=== PATIENT | female | born 1985 | race Caucasian/White ===

== ENCOUNTER 2017-10-01 02:42 | Emergency (ER) | payer SELFPAY ==
--- NOTE | 2017-10-01 03:28 | PD ---
HPI Chief Complaint ctx Date Seen: Oct 01, 2017 Time Seen: 03:22 Travel History International Travel<30 Days: No Contact w/Intl Traveler<30Days: No Known Affected Area: No History of Present Illness HPI Pt is a 32y/o G1 @ 40.0wks. She has PNC with Dr. Jerome. She was seen in the office today and was 1cm dilated. She presents with c/o ctx which started at 4pm and became intense over the past 3 hrs. She denies LOF or VB. +FM. is c/b Rh neg (known Rh pos partner). Weeks Gestation: 40 Para: 0 : 1 History Past Medical History Medical History: Denies Significant Hx Obstetric History Obstetric History 1. current Past Surgical History Narrative Surgical T&A lasix Family History Family History: Negative Social History Alcohol Use: No Tobacco Use: No Substance Abuse: No Review of Systems Except as stated in HPI: all other systems reviewed are Neg Physical Exam Narrative General: well developed, well nourished, no acute distress HEENT: normocephalic atraumatic, extraocular movements intact, neck supple Abdomen: soft, gravid, nontender, nondistended Extremities: full range of motion Skin: normal coloration, no rashes, no suspicious skin lesions noted Neurologic: cranial nerves 2-12 grossly intact, normal muscle tone, normal gait Psychiatric: normal mood and affect, appropriate FHTs: 130, +accels, no decels, moderate variability, reactive Coronita: irregular ctx Cvx: /-2 Data Data Vital Signs Reviewed: Yes Orders Orders Vital Signs (Adult) .ON ADMISSION (10/01/17 03:22) ^ Labor Status (10/01/17 03:22) Urinalysis - C+S If Indicated (10/01/17 03:22) ^ Non Stress Test (10/01/17 03:22) Group B Strep: Negative MDM Plan 32y/o G1 @ 40.0wks with ctx, Rh neg. -- cvx 1cm (unchanged from clinic) -- FHTs cat 1 -- recheck in 1hr -- GBS neg Dispo: cvx unchanged after 1hr; d/c home with precautions Diagnosis Diagnosis: Primary Impression: 40 weeks gestation of Additional Impressions: Uterine contractions during Rh negative status during in third trimester Rupinder Solo MD Oct 01, 2017 03:28
[2017-10-01 04:16] LABS: BILIRUBIN, URINE NEG (NEG); BLOOD, URINE NEG (NEG); GLUCOSE,URINE NEG (NEG); KETONE, URINE TRACE mg/dL (NEG); MUCUS URINE FEW /lpf (OCC); NITRITE,URINE NEG (NEG); SQUAMOUS EPITHELIAL CELL URINE 5 /hpf (0-5); URINE COLOR YELLOW (YELLW/STRAW); URINE LEUKOCYTE ESTERASE NEG (NEG)
[2017-10-01] MEDS ORDERED: PRENTAB7 (15:17)
== END 2017-10-01 05:04 | disposition home or self-care (01) ==
LOC: HOBED 02:56
DX: O47.1 False labor at or after 37 completed weeks of gestation (principal); Z3A.40 40 weeks gestation of pregnancy
CPT/HCPCS: 81001; 99284

== ENCOUNTER 2017-10-01 14:49 | Inpatient (IN) | payer OTHER ==
[~2017-10-01] VITALS: Ht 167.6 cm; Wt 67.0 kg
[2017-10-01] VITALS (39 sets, daily range): BP systolic 96–133; BP diastolic 47–94; PULSE 75–128; RESP 18–20; TEMP 98.2–98.8
--- NOTE | 2017-10-01 15:11 | PD ---
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 They increased in intensity and frequency and she was seen in the OB ED at approximately 3 AM and had an unchanged vaginal exam since seen in the office on the same day of 1 cm dilated. She reports that her contractions continued to increase in intensity and frequency since that time. She was seen in the office today with a vaginal exam of 5/complete. She denies any leaking of fluid or vaginal bleeding. She reports good movement. Weeks Gestation: 40 Para: 0 : 1 History Past Medical History Narrative Medical Reflux, remote history of asthma Obstetric History Obstetric History History of HPV Past Surgical History Narrative Surgical Tonsillectomy, wisdom teeth, Family History Narrative Family History Thrombocytopenia Social History Alcohol Use: No Tobacco Use: No Substance Abuse: No Allergies-Medications (Allergen,Severity, Reaction): Coded Allergies: No Known Allergies (Unverified , 10/01/17) Home Meds Reported Medications Pnv No.95/Ferrous Fum/Folic AC ( Vitamins Tablet) 28 Mg Iron-800 Mcg Tablet 10/01/17 Review of Systems Except as stated in HPI: all other systems reviewed are Neg Physical Exam Narrative GENERAL: Well-nourished, well-developed patient. SKIN: Warm and dry. HEAD: Normocephalic and atraumatic. EYES: No scleral icterus. No injection or drainage. ENT: No nasal drainage noted. Mucous membranes pink. Airway patent. NECK: Supple, trachea midline. No JVD. CARDIOVASCULAR: Regular rate and rhythm without murmurs, gallops, or rubs. RESPIRATORY: Breath sounds equal bilaterally. No accessory muscle use. BREASTS: Deferred ABDOMEN/GI: Abdomen soft, non-tender, bowel sounds present, no rebound, no guarding Gravid GENITOURINARY: External Genitalia: intact and normal in appearance. Normal BUS glands. Grossly normal rugae and no cervical or vaginal masses were appreciated. Physiologic discharge is noted. SVE 5/complete/-1 with BBOW FHT's: heart tones are in the 130s with moderate long-term variability, good accelerations, no decelerations are noted. The category 1 heart rate tracing EXTREMITIES: No cyanosis or edema. BACK: Nontender without obvious deformity. No CVA tenderness. NEUROLOGICAL: Awake and alert. Motor and sensory grossly within normal limits. Five out of 5 muscle strength in all muscle groups. Normal speech. Psychiatric: Grossly normal memory and affect Musculoskeletal: Grossly normal range of motion, gait, muscle strength MDM Plan Assessment/plan: 1. IUP at 40.0 2. Labor: The patient was 1 cm dilated at 4 AM and has progressed to 5/complete /-1 with a bulging bag of water. She was examined in the office with the same exam and was sent over for further evaluation. She will be admitted to Dr. Manning for labor who was in agreement with the plan. 3. GBS negative 4. History of HPV 5. Remote history of asthma: No issues 6. Rh- status post RhoGAM 7. History of reflux 8. well-being: The patient has reassuring testing with a reactive NST and category 1 heart rate tracing, we will continue monitoring. Claudia Blair MD Oct 01, 2017 15:11
[2017-10-01] MEDS ORDERED: PRENTAB7 (15:17)
[2017-10-01] MEDS ORDERED: LACTATED RINGER'S 1000 ML INJ 1,000 ML IV SCH (15:18)
[2017-10-01] MEDS ORDERED: LACTATED RINGER'S 1000 ML INJ 1,000 ML IV PRN (15:18)
[2017-10-01] MEDS ORDERED: LIDOCAINE HCL 1% 50 ML VIAL I-DERMAL PRN (15:30)
[2017-10-01] MEDS ORDERED: OXYTOCIN 30 UNITS-500ML PREMIX 500 ML IV ONE (15:30)
[2017-10-01] MEDS ORDERED: MINERAL OIL 10 ML VIAL TOPICAL PRN (15:30)
[2017-10-01] MEDS ORDERED: CITRIC ACID-SODIUM CITRATE LIQ 30 ML UDC PO SCH (15:30)
[2017-10-01] MEDS ORDERED: LIDOCAINE HCL 1% 50 ML VIAL INFIL PRN (15:30)
[2017-10-01] MEDS ORDERED: SODIUM CHLORID 0.9% 500 ML INJ 500 ML IV PRN (15:30)
[2017-10-01] MEDS ORDERED: SODIUM CHLOR 0.9% 1000 ML INJ 1,000 ML IV PRN (15:38)
[2017-10-01] MEDS ORDERED: DIPHTH/TETANUS/ACEL PERTUSSIS (BOOSTER) 0.5 ML VIAL/PFS IM ONE (16:00)
[2017-10-01] MEDS ORDERED: MEASLES, MUMPS, RUBELLA VACCINE 0.5 ML VIAL SQ ONE (16:00)
[2017-10-01] MEDS ORDERED: fentaNYL 2MCG-BUPIV 0.125% INJ 100 ML ONE (16:40)
[2017-10-01] MEDS ORDERED: ePHEDrine/NS 25 MG/5 ML SYRINGE ONE (16:40)
[2017-10-01 16:49] LABS: AUTOMATED NEUTROPHIL # 10.3 TH/MM3 (1.8-7.7); BASOPHIL % 0.4 % (0.0-2.0); EOSINOPHIL % 0.1 % (0.0-4.0); HEMATOCRIT 35.2 % (35.0-46.0); LYMPH % 11.7 % (9.0-44.0); LYMPHOCYTE # 1.5 TH/MM3 (1.0-4.8); MEAN CELL VOLUME 89.6 FL (80.0-100.0); MEAN CORPUSCULAR HEMOGLOBIN 30.6 PG (27.0-34.0); MEAN CORPUSCULAR HGB CONC 34.2 % (32.0-36.0); MONO % 6.1 % (0.0-8.0); NEUT % 81.7 % (16.0-70.0); PLATELET COUNT 275 TH/MM3 (150-450); RED BLOOD COUNT 3.93 MIL/MM3 (4.00-5.30); RED CELL DISTRIBUTION WIDTH 13.7 % (11.6-17.2); WHITE BLOOD COUNT 12.6 TH/MM3 (4.0-11.0)
[2017-10-01 16:52] LABS: HEMO FLAGS AUTO DIFF
[2017-10-01 17:05] LABS: BACTERIA, URINE OCC /hpf; BLOOD, URINE LARGE (NEG); COMMENT (UR) CULTURE INDICATED; CULTURE IF INDICATED CULTURE INDICATED; GLUCOSE,URINE NEG (NEG); KETONE, URINE 40 mg/dL (NEG); MUCUS URINE FEW /lpf (OCC); NITRITE,URINE NEG (NEG); SQUAMOUS EPITHELIAL CELL URINE 19 /hpf (0-5); URINE COLOR YELLOW (YELLW/STRAW)
[2017-10-01 17:39] LABS: PLATELET ESTIMATE SMEAR NORMAL (NORMAL); PLATELET MORPHOLOGY NORMAL (NORMAL); SCAN/DIFF AUTO DIFF CONFIRMED
[2017-10-01] MEDS ORDERED: OXYTOCIN 30 UNITS-500ML PREMIX 500 ML IV SCH ×2 (18:15→22:15)
[2017-10-01] MEDS ORDERED: NO SYSTEM NARCOTICS PRN (19:15)
[2017-10-01] MEDS ORDERED: ePHEDrine/NS 25 MG/5 ML SYRINGE IV PUSH PRN (19:15)
[2017-10-01] MEDS ORDERED: fentaNYL 2MCG-BUPIV 0.125% 100 ML EPIDURAL SCH (19:15)
[2017-10-01] MEDS ORDERED: DO NOT ADMINISTER ANTICOAGULANTS PRN (19:15)
--- NOTE | 2017-10-01 22:14 | PD.OB.DELI ---
Weeks gestation: 40 Pt started active labor?: Yes Medical induction of labor?: No Artificial rupture of membrane: Yes Anesthesia: Epidural Episiotomy: None Vaginal Delivery: Normal Presentation: Occiput anterior, Compound (right hand) Nuchal Cord: Other (wrapped around body, arm, leg, and neck x 1; delivered through then reduced ) Delayed cord clamping (45 sec): Yes Infant: Female Delivery date: Oct 01, 2017 Delivery time: 21:46 One Minute : 8 Five Minute : 9 Placenta: Spontaneous delivery, Intact, 3 vessel cord Laceration: 1 deg (perineal and right labial) Repair: Chromic running (3-0 running on both superficial lacerations with excellent result) Estimated blood loss: 100 mL Additional Information healthy female infant Kaylen Manning MD Oct 01, 2017 22:14
[2017-10-01] MEDS ORDERED: WITCH HAZEL 50%/GLYCERIN 12.5% 40 PAD JAR TOPICAL PRN (22:15)
[2017-10-01] MEDS ORDERED: oxyCODONE/ACETAMINOPHEN 5 MG/325 MG TAB PO PRN ×2 (22:15)
[2017-10-01] MEDS ORDERED: BENZOCAINE 20% TOPICAL SPRAY 60 ML CAN TOPICAL PRN (22:15)
[2017-10-01] MEDS ORDERED: ACETAMINOPHEN 325 MG TAB PO PRN (22:15)
[2017-10-01] MEDS ORDERED: DOCUSATE SODIUM 50 MG/SENNA 8.6 MG TAB PO PRN (22:15)
[2017-10-01] MEDS ORDERED: ALUMINUM/MAGNESIUM/SIMETH 30 ML CUP PO PRN (22:15)
[2017-10-01] MEDS ORDERED: ZOLPIDEM TARTRATE 5 MG TAB PO PRN (22:15)
[2017-10-01] MEDS ORDERED: SODIUM CHLORIDE 0.9% FLUSH 10 ML FLUSH IV FLUSH PRN (22:15)
[2017-10-01] MEDS ORDERED: ONDANSETRON ODT 4 MG TAB PO PRN (22:15)
--- NOTE | 2017-10-01 22:15 | HHI.DCPOC ---
Discharge Care Plan Diagnosis: (1) (spontaneous vaginal delivery) Your Health Problems Are: Vaginal delivery Report Symptoms to Your Doctor -Temperature above 100.5 degrees -Redness, of incision or excessive or foul smelling drainage -Unusual pain or calf pain -Increased vaginal bleeding -Painful or difficulty urinating -Feelings of extreme sadness or anxiety after 2 weeks Goals to Promote Your Health * To prevent worsening of your condition and complications * To maintain your health at the optimal level Directions to Meet Your Goals Take your medications as prescribed Follow your dietary instruction Follow activity as directed Ensure plenty of rest for recovery Drink fluids for hydration Keep your appointments as scheduled Take your immunizations and boosters as scheduled If your symptoms worsen call your PCP, if no PCP go to Urgent Care Center or Emergency Room Smoking is Dangerous to Your Health. Avoid second hand smoke Call the 24-hour crisis hotline for domestic abuse at Kaylen Manning MD Oct 01, 2017 22:15
[2017-10-02] VITALS (7 sets, daily range): BP systolic 103–111; BP diastolic 63–71; PULSE 67–114; RESP 12–18; TEMP 97.9–98.2; O2SAT 96–98
[2017-10-02] MEDS: IBUPROFEN 800 MG TAB PO PRN ×3 (00:12→17:46)
--- NOTE | 2017-10-02 13:54 | HHI.OB ---
Subjective Post Day: 1 Remarks PPD#1; Stable, doing well Objective Vitals/I&O Vital Signs Date Time Temp Pulse Resp B/P (MAP) Pulse Ox O2 Delivery O2 Flow Rate FiO2 10/02/17 08:00 97.9 82 12 107/65 (79) 10/02/17 02:06 98.1 110 18 111/63 (79) 96 10/02/17 01:42 67 18 103/67 (79) 98 10/02/17 01:42 98.2 10/02/17 01:17 18 10/02/17 01:15 90 108/71 (83) 10/02/17 00:15 114 108/70 (83) 10/02/17 00:00 101 108/64 (79) 10/01/17 23:55 98.3 18 10/01/17 23:45 100 96/71 (79) 10/01/17 23:31 75 113/84 (94) 10/01/17 23:15 97 119/65 (83) 10/01/17 23:10 18 10/01/17 23:00 98 10/01/17 23:00 119/71 (87) 10/01/17 22:46 100 102/47 (65) 10/01/17 22:30 103 126/82 (97) 10/01/17 22:15 109 18 10/01/17 22:15 125/82 (96) 10/01/17 22:00 129/79 (96) 10/01/17 22:00 110 10/01/17 21:52 119 133/79 (97) 10/01/17 21:31 110/94 (99) 10/01/17 21:31 128 10/01/17 21:15 98.2 10/01/17 21:15 84 107/62 (77) 10/01/17 21:00 95 101/56 (71) 10/01/17 21:00 18 10/01/17 20:45 95 10/01/17 20:45 108/62 (77) 10/01/17 20:30 90 107/66 (80) 10/01/17 20:15 96 18 99/56 (70) 10/01/17 20:00 89 10/01/17 20:00 106/61 (76) 10/01/17 19:59 18 10/01/17 19:45 90 107/63 (78) 10/01/17 19:30 101 100/58 (72) 10/01/17 19:15 100 105/63 (77) 10/01/17 19:13 98.8 18 10/01/17 19:00 99 104/66 (79) 10/01/17 18:40 20 10/01/17 18:40 94 112/67 (82) 10/01/17 18:35 97 10/01/17 18:35 111/64 (80) 10/01/17 18:30 99 10/01/17 18:30 112/61 (78) 10/01/17 18:25 100 112/67 (82) 10/01/17 18:20 103 105/61 (76) 10/01/17 18:15 103 119/63 (81) 10/01/17 18:10 91 115/70 (85) 10/01/17 18:05 103 100/48 (65) 10/01/17 18:00 101 115/90 (98) 10/01/17 17:55 103 127/75 (92) 10/01/17 17:51 107 121/81 (94) 10/01/17 17:26 86 122/73 (89) 10/01/17 17:25 20 10/01/17 15:53 18 10/01/17 15:45 97 128/83 (98) Objective Remarks GENERAL: Well-nourished, well-developed patient. CARDIOVASCULAR: Regular rate and rhythm without murmurs, gallops, or rubs. RESPIRATORY: Breath sounds equal bilaterally. No accessory muscle use. ABDOMEN/GI: Abdomen soft, non-tender. Fundus: Firm, non-tender at umbilicus. GENITOURINARY: Light to moderate bleeding. EXTREMITIES: No cyanosis or edema, non-tender, without signs of DVT. Medications and IVs Current Medications Medications (Trade) Dose Ordered Sig/Kd Route Start Time Stop Time Status Last Admin (NS Flush) 2 ml BID IV FLUSH 10/01/17 22:15 (NS Flush) 2 ml UNSCH PRN IV FLUSH 10/01/17 22:15 (Tylenol) 650 mg Q4H PRN PO 10/01/17 22:15 (Motrin) 800 mg Q8H PRN PO 10/01/17 22:15 10/02/17 08:58 (Percocet 5-325 Mg) 1 tab Q4H PRN PO 10/01/17 22:15 (Percocet 5-325 Mg) 2 tab Q4H PRN PO 10/01/17 22:15 (Americaine 20% Top Spr) 1 spray Q4H PRN TOPICAL 10/01/17 22:15 (Tucks Pads) 1 applic QID PRN TOPICAL 10/01/17 22:15 (Lorraine-Colace) 2 tab Q12H PRN PO 10/01/17 22:15 (Ambien) 5 mg HS PRN PO 10/01/17 22:15 (Mag-Al Plus Susp Liq) 15 ml Q8H PRN PO 10/01/17 22:15 (Zofran Odt) 4 mg Q6H PRN PO 10/01/17 22:15 Assessment/Plan Assessment and Plan PPD#1; stable, plan discharge for tomorrow Discharge Planning routine,tomorrow Osvaldo Dickey MD Oct 02, 2017 13:54
[2017-10-02] MEDS: SODIUM CHLORIDE 0.9% FLUSH 10 ML FLUSH IV FLUSH SCH (19:48)
[2017-10-03] MEDS: IBUPROFEN 800 MG TAB PO PRN (03:33)
[2017-10-03 08:45] VITALS: BP 102/69; PULSE 76; RESP 17; TEMP 97.8
[2017-10-03] MEDS: SODIUM CHLORIDE 0.9% FLUSH 10 ML FLUSH IV FLUSH SCH (09:00)
--- NOTE | 2017-10-03 12:00 | HHI.OB ---
Subjective Post Day: 2 Remarks doing well with nursing no issues Objective Vitals/I&O Vital Signs Date Time Temp Pulse Resp B/P (MAP) Pulse Ox O2 Delivery O2 Flow Rate FiO2 10/03/17 08:45 97.8 76 17 102/69 (80) Objective Remarks GENERAL: Well-nourished, well-developed patient. CARDIOVASCULAR: Regular rate and rhythm without murmurs, gallops, or rubs. RESPIRATORY: Breath sounds equal bilaterally. No accessory muscle use. ABDOMEN/GI: Abdomen soft, non-tender. Fundus: Firm, non-tender at umbilicus. GENITOURINARY: Light to moderate bleeding. EXTREMITIES: No cyanosis or edema, non-tender, without signs of DVT. Medications and IVs Current Medications Medications (Trade) Dose Ordered Sig/Kd Route Start Time Stop Time Status Last Admin (NS Flush) 2 ml BID IV FLUSH 10/01/17 22:15 (NS Flush) 2 ml UNSCH PRN IV FLUSH 10/01/17 22:15 (Tylenol) 650 mg Q4H PRN PO 10/01/17 22:15 (Motrin) 800 mg Q8H PRN PO 10/01/17 22:15 10/03/17 03:33 (Percocet 5-325 Mg) 1 tab Q4H PRN PO 10/01/17 22:15 (Percocet 5-325 Mg) 2 tab Q4H PRN PO 10/01/17 22:15 (Americaine 20% Top Spr) 1 spray Q4H PRN TOPICAL 10/01/17 22:15 (Tucks Pads) 1 applic QID PRN TOPICAL 10/01/17 22:15 (Lorraine-Colace) 2 tab Q12H PRN PO 10/01/17 22:15 (Ambien) 5 mg HS PRN PO 10/01/17 22:15 (Mag-Al Plus Susp Liq) 15 ml Q8H PRN PO 10/01/17 22:15 (Zofran Odt) 4 mg Q6H PRN PO 10/01/17 22:15 Assessment/Plan Assessment and Plan PPD#1; stable, plan discharge for tomorrow 10/03/17 ready for discharge with follow up in 6 weeks or prn Discharge Planning routine,tomorrow Nina Kumar MD Oct 03, 2017 12:00
--- NOTE | 2017-10-03 12:01 | HHI.DCPOC ---
Discharge Care Plan Report Symptoms to Your Doctor -Temperature above 100.5 degrees -Redness, of incision or excessive or foul smelling drainage -Unusual pain or calf pain -Increased vaginal bleeding -Painful or difficulty urinating -Feelings of extreme sadness or anxiety after 2 weeks Goals to Promote Your Health * To prevent worsening of your condition and complications * To maintain your health at the optimal level Directions to Meet Your Goals Take your medications as prescribed Follow your dietary instruction Follow activity as directed Ensure plenty of rest for recovery Drink fluids for hydration Keep your appointments as scheduled Take your immunizations and boosters as scheduled If your symptoms worsen call your PCP, if no PCP go to Urgent Care Center or Emergency Room Smoking is Dangerous to Your Health. Avoid second hand smoke Call the 24-hour crisis hotline for domestic abuse at Nina Kumar MD Oct 03, 2017 12:01
== END 2017-10-03 13:52 | disposition home or self-care (01) | DRG 775 ==
LOC: HOBED 14:49 → H2EA 15:20 → H1EA 10-02 01:27
PROVIDERS: ADMIT Obstetrics & Gynecology; ATTEND Obstetrics & Gynecology
PROC: 10E0XZZ Delivery of Products of Conception, External Approach (ICD-10-PCS; principal; 2017-10-01)
PROC: 0HQ9XZZ Repair Perineum Skin, External Approach (ICD-10-PCS; 2017-10-01)
PROC: 00HU33Z Insertion of Infusion Device into Spinal Canal, Percutaneous Approach (ICD-10-PCS; 2017-10-01)
PROC: 3E0R3BZ Introduction of Anesthetic Agent into Spinal Canal, Percutaneous Approach (ICD-10-PCS; 2017-10-01)
DX: O48.0 Post-term pregnancy (principal); J45.909 Unspecified asthma, uncomplicated; Z37.0 Single live birth; O99.52 Diseases of the respiratory system complicating childbirth; Z3A.40 40 weeks gestation of pregnancy; K21.9 Gastro-esophageal reflux disease without esophagitis; O99.62 Diseases of the digestive system complicating childbirth; O70.0 First degree perineal laceration during delivery; O69.81X0 Labor and delivery complicated by cord around neck, without compression, not applicable or unspecified
CPT/HCPCS: 80307; 81001; 85025; 85461; 86850; 86900; 86901; 87086; 90384; J2590; J2790; J7040; J7120